=== PATIENT | female | born 2000 | race Two or more races ===

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

== ENCOUNTER 2020-12-30 14:29 | Emergency (ER) | payer OTHER ==
[~2020-12-30] VITALS: Ht 165.1 cm; Wt 127.3 kg
[2020-12-30 14:38] VITALS: BP 153/90
== END 2020-12-30 16:09 | disposition home or self-care (01) ==
LOC: EMS 14:31
DX: B34.9 Viral infection, unspecified (principal); Z20.822 Contact with and (suspected) exposure to COVID-19
CPT/HCPCS: 99283; U0003